=== PATIENT | female | born 1985 | race Caucasian/White ===

== ENCOUNTER 2022-07-17 12:41 | Inpatient (IN) | payer MEDICAID ==
[~2022-07-17] VITALS: Ht 162.6 cm; Wt 70.8 kg
[2022-07-17 12:56] VITALS: BP 118/76
--- NOTE | 2022-07-17 12:58 | NUR ---
Patient ambulated to bed 6.
--- NOTE | 2022-07-17 13:15 | NUR ---
Dr. Escobar evaluating patient at bedside.
--- NOTE | 2022-07-17 13:26 | NUR ---
36 y/o female refered here from Dr. Keys's office for a D/C. Patient was told she is still retaining products of conception. Per patient, denies any fevers, pain or vaginal bleeding. LMP 04/18/22. [id number] Medical History: Denies NKDA
[2022-07-17 14:05] LABS: ALBUMIN 3.7 g/dL (3.4-5.0); ANION GAP 12.2 (8-16); CARBON DIOXIDE 26.2 mmol/L (21-32); CREATININE 0.7 mg/dL (0.6-1.3); POTASSIUM 3.4 mmol/L (3.5-5.1); TOTAL BILIRUBIN 0.5 mg/dL (0.0-1.0)
[2022-07-17 14:15] LABS: BASOPHILS % (AUTO) 0.3 % (0.0-2.0); EOSINOPHILS # (AUTO) 0.1 K/uL (0-0.4); EOSINOPHILS % (AUTO) 0.8 % (0.0-4.0); HEMATOCRIT 38.1 % (36-48); HEMOGLOBIN 13.1 g/dL (12.0-16.0); LYMPHOCYTES # (AUTO) 2.4 K/uL (2.5-16.5); LYMPHOCYTES % (AUTO) 29.1 % (20.5-51.1); MEAN CORPUSCULAR HEMOGLOBIN 30 pg (27-31); MEAN CORPUSCULAR HGB CONC 34 g/dL (33-37); MEAN CORPUSCULAR VOLUME 87.3 fL (80-94); MONOCYTES # (AUTO) 0.6 K/uL (0.8-1.0); MONOCYTES % (AUTO) 7.1 % (1.7-9.3); NEUTROPHILS # (AUTO) 5.3 K/uL (1.8-7.7); NEUTROPHILS % (AUTO) 62.7 % (42.2-75.2); PLATELET COUNT (AUTO) 327 K/uL (140-450); RED BLOOD CELL COUNT(AUTO) 4.37 MIL/uL (4.20-5.40); RED CELL DISTRIBUTION WIDTH 12.7 % (11.6-13.7); WHITE BLOOD COUNT (AUTO) 8.4 K/uL (4.8-10.8)
--- NOTE | 2022-07-17 15:40 | NUR ---
Patient is laying in bed, respirations even and unlabored. All needs met by staff.
[2022-07-17] MEDS ORDERED: MORPHINE SULFATE 2 MG/ML SYR IVP PRN (16:20)
[2022-07-17] MEDS ORDERED: DEXAMETHASONE 4 MG/ML VIAL ONE ×2 (17:00→18:14)
[2022-07-17] MEDS ORDERED: fentaNYL citrate 0.05 MG/ML - 50mL vial IV ONE (17:00)
[2022-07-17] MEDS ORDERED: ONDANSETRON 4 MG/2 ML VIAL ONE ×2 (17:00→17:56)
[2022-07-17] MEDS ORDERED: PROPOFOL 200 MG/20 ML VIAL IV ONE ×2 (17:00→17:34)
[2022-07-17] MEDS ORDERED: SEVOFLURANE 250 ML BTL INH ONE (17:00)
--- NOTE | 2022-07-17 17:20 | NUR ---
Patient was taken by OR Nurse for procedure.
--- NOTE | 2022-07-17 17:20 | NUR ---
Patient will be admitted to care of Dr. Keys. Admited to OB. Will go to room 105-B. Belongings list completed. Report to MACKENZIE Rico.
[2022-07-17] MEDS ORDERED: diphenhydrAMINE 50 MG/ML VIAL IVP PRN (17:25)
[2022-07-17] MEDS ORDERED: MEPERIDINE 25 MG/ML SYR IVP PRN (17:25)
[2022-07-17] MEDS ORDERED: ONDANSETRON 4 MG/2 ML VIAL IVP PRN (17:25)
[2022-07-17] MEDS ORDERED: HYDROmorphone 1 MG/ML AMP IVP PRN (17:25)
--- NOTE | 2022-07-17 17:25 | NUR ---
The patient's care was reviewed and supervised by Daya Pienda RN.
[2022-07-17] MEDS ORDERED: fentaNYL citrate 0.05 MG/ML VIAL ONE (17:34)
[2022-07-17] MEDS ORDERED: POTASSIUM CHLORIDE 10 MEQ TABER PO SCH (18:35)
[2022-07-17 19:00] VITALS: BP 107/57
[2022-07-17] MEDS: LACTATED RINGERS 1,000 ML IV SCH ×2 (19:15→21:25)
--- NOTE | 2022-07-17 19:30 | NUR ---
RECEIVED REPORT FROM SURGICAL NURSE NINOSKA FOR CONTINUITY OF CARE. PATIENT IS A&O X4, HUNGARIAN SPEAKING. PATIENT IS ON ROOM AIR, BREATHING IS NORMAL WITH SYMMETRICAL RISE AND FALL OF CHEST. IV IS A 20 LAC, RUNNING LR AT 120. PATIENT IS VERY DROWSY, LYING SEMI-FOWLERS IN BED. BED IS IN LOWEST POSITION, WHEELS LOCKED, CALL LIGHT IN PLACE. WILL CONTINUE TO OBSERVE PATIENT.
--- NOTE | 2022-07-18 | NUR ---
PATIENT IS VERY TIRED BUT WAS ABLE TO ANSWER ADMISSION QUESTIONS. ADMISSION WAS COMPLETED SUCCESSFULLY WITH THE ASSISTANCE OF MACKENZIE KIRKPATRICK. PATIENT WAS ALSO ABLE TO AMBULATE TO THE RESTROOM WITH ASSISTANCE DURING THE ADMISSION QUESTIONS. AFTER ADMISSION, PATIENT SHUT HER EYES TO GO BACK TO SLEEP. BREATHING IS NORMAL WITH SYMMETRICAL RISE AND FALL OF CHEST. WILL CONTINUE TO OBSERVE PATIENT.
[2022-07-18 04:00] VITALS: BP 105/50
--- NOTE | 2022-07-18 05:00 | NUR ---
PATIENT SLEPT THROUGHOUT THE NIGHT. IV IS STILL RUNNING LR AT 120. PATIENT'S BREATHING IS NORMAL WITH SYMMETRICAL RISE AND FALL OF CHEST. WILL CONTINUE TO OBSERVE PATIENT.
[2022-07-18] MEDS: LACTATED RINGERS 1,000 ML IV SCH (05:40)
--- NOTE | 2022-07-18 06:37 | NUR ---
MESSAGED MD GODINEZ FOR DIET. RESPONDED TO PLACE PATIENT ON REGULAR DIET, AND PATIENT WILL BE D/C. WILL ENDORSE TO DAY SHIFT NURSE.
--- NOTE | 2022-07-18 07:19 | NUR ---
RECEIVED REPORT FROM NIGHT NURSE NEMO FOR CONTINUITY OF CARE. ALERT AND VERBALLY RESPONSIVE. RESP. EVEN AND UNLABORED. IVF INFUSING WELL. IV SITE INTACT LAC. NO C/O PAIN OR DISCOMFORT. CALL LIGHT KEPT WITHIN REACH. WILL CONTINUE TO MONITOR.
--- NOTE | 2022-07-18 07:21 | NUR ---
ENDORSED TO DAY SHIFT NURSE DAVE FOR CONTINUITY OF CARE. PATIENT IS STABLE.
[2022-07-18 08:00] VITALS: BP 96/47
--- NOTE | 2022-07-18 09:00 | NUR ---
PATIENT HAS BEEN SCREENED AND CATEGORIZED LOW NUTRITION RISK. PATIENT WILL BE SEEN WITHIN 7 DAYS OF ADMISSION. 07/24/22 REVIEWED BY APRIL GARCÍA RD
--- NOTE | 2022-07-18 11:00 | NUR ---
PT LEFT. DISCHARGE TO HOME. AMBULATORY. ALERT AND ORIENTED X 4. RESP. EVEN AND UNLABORED. SKIN INTACT. IV AND ID BAND REMOVED. DISCHARGED PAPERWORK SIGNED AND DISCUSS BY PT. PERSONAL BELONGINGS TAKEN. NO C/O PAIN OR DISCOMFORT. REMAINS STABLE.
== END 2022-07-18 11:00 | disposition home or self-care (01) | DRG 543 ==
LOC: EDBD 12:41 → MED 12:41 → MMU 15:00 → MTU 17:33
PROVIDERS: ADMIT Obstetrics & Gynecology; ATTEND Obstetrics & Gynecology
PROC: 10D17ZZ Extraction of Products of Conception, Retained, Via Natural or Artificial Opening (ICD-10-PCS; principal; 2022-07-17 17:00)
DX: O03.4 Incomplete spontaneous abortion without complication (principal); Z20.822 Contact with and (suspected) exposure to COVID-19
CPT/HCPCS: 36415; 80053; 85025; 86886; 86900; 86901; 87081; 99285; J1100; J2405; J2704; J3010; J7120